=== PATIENT | male | born 1975 | race Native Hawaiian/Other Pacific Islander ===

== ENCOUNTER 2016-09-17 11:54 | Outpatient (CLI) | payer OTHER ==
[~2016-09-17 11:54] MED LIST: LISI20TA31 OR; OMEPRAZOLE20 M1 OR
== END 2016-09-17 23:36 | disposition home or self-care (01) ==
LOC: RAD 11:54
DX: M25.562 Pain in left knee (principal); M25.561 Pain in right knee; M25.552 Pain in left hip; M25.551 Pain in right hip; M54.89 Other dorsalgia